=== PATIENT | male | born 1950 | race Caucasian/White ===

== ENCOUNTER 2019-04-23 23:09 | Observation (INO) ==
[2019-04-23 23:11] LABS: Microscopic, Urine URINE MICROSCOPIC (MICROSCOPIC)
--- NOTE | 2019-04-23 23:16 | Emergency Department Note ---
ED Disposition Clinical Impression: PNA (pneumonia) Qualifiers: Pneumonia type: due to unspecified organism Laterality: left Lung location: lower lobe of lung Qualified Code(s): J18.9 - Pneumonia, unspecified organism Disposition: Admitted as Observation Condition on Discharge: [facility] - Critical Care Critical Care Time: No Attestation: On 04/23/19, the high probability of a clinically significant, sudden or life threatening deterioration of the following system(s) required my full and direct attention, intervention and personal management. The time I documented below is in addition to time spent performing reported procedures but includes the following listed in this critical care notation. Medical Decision Making - Niall Inquiry Pt receiving controlled substance: No Vital Signs: 04/23/19 23:00 04/24/19 00:22 04/24/19 04:00 Temperature 100.6 F H Temperature Source Rectal Pulse Rate Pulse Rate [Right Brachial] 115 H 70 Respiratory Rate 20 19 Blood Pressure Blood Pressure [Right Arm] 132/78 114/59 L Blood Pressure Mean [Right Arm] 96 77 Blood Pressure Source Blood Pressure Source [Right Arm] Automatic Cuff Automatic Cuff Blood Pressure Position Blood Pressure Position [Right Arm] Sitting Sitting 02 Sat by Pulse Oximetry 98 Oxygen Delivery Method Room Air Nasal Cannula Oxygen Flow Rate (LPM) 2 04/24/19 04:11 04/24/19 04:45 Temperature 98.9 F 98.9 F Temperature Source Oral Axillary Pulse Rate 81 Pulse Rate [Right Brachial] 73 Respiratory Rate 19 18 Blood Pressure 121/70 Blood Pressure [Right Arm] 120/66 Blood Pressure Mean [Right Arm] 84 Blood Pressure Source Automatic Cuff Blood Pressure Source [Right Arm] Automatic Cuff Blood Pressure Position Sitting Blood Pressure Position [Right Arm] Supine 02 Sat by Pulse Oximetry 95 Oxygen Delivery Method Room Air Nasal Cannula Oxygen Flow Rate (LPM) 2 - Lab Data Lab Results 04/23/19 23:00: Urine Color Yellow, Urine Appearance Clear, Urine pH 6.0, Ur Specific Peak 1.025, Urine Protein Negative, Urine Glucose (UA) Negative, Urine Ketones Negative, Urine Blood Negative, Urine Nitrate Negative, Urine Bilirubin Negative, Urine Urobilinogen 4.0, Ur Leukocyte Esterase Negative, Urine WBC 3-5, Ur Squamous Epith Cells 5-10, Urine Bacteria Trace, Urine Mucus Trace 04/23/19 23:10: WBC 9.4, RBC 4.60, Hgb 14.3, Hct 44.7, MCV 97.3 H, MCH 31.2, MCHC 32.1, RDW 14.7, Plt Count 102 L, MPV 7.3 L, Neut % (Auto) 82.6 H, Lymph % (Auto) 7.7 L, [place] % (Auto) 7.5, Eos % (Auto) 2.0, Baso % (Auto) 0.2, Neut # (Auto) 7.8, Lymph # (Auto) 0.7, [place] # (Auto) 0.7, Eos # (Auto) 0.2, Baso # (Auto) 0.0 04/23/19 23:10: Sodium 143, Potassium 3.6, Chloride 103, Carbon Dioxide 27, Anion Gap 16.6 H, BUN 20 H, Creatinine 1.18, Estimated Creat Clear 93, Estimated GFR 61, Est GFR ( Amer) 74, Glucose 139 H, Calcium 8.8, Total Bilirubin 1.2 H, AST 34, ALT 43, Alkaline Phosphatase 66, Troponin I < 0.02, Total Protein 7.3, Albumin 3.6, Globulin 3.7 H, Albumin/Globulin Ratio 1.0 L 04/23/19 23:10: Lactate 2.4 H 04/23/19 23:10: Influenza Type A Ag Negative, Influenza Type B Ag Negative 04/23/19 23:10: B-Natriuretic Peptide 62 04/23/19 23:22: O2 % 2l, ABG pH 7.43, ABG pCO2 34.0 L, ABG pO2 65.3 L, ABG HCO3 22.0, ABG Total CO2 23.1, ABG O2 Saturation 92, ABG Base Excess -2.3 04/24/19 02:29: Troponin I < 0.02 04/24/19 03:15: Lactate 2.0 Result diagrams: 04/23/19 23:10 04/23/19 23:10 Orders (Tests/Meds): ED MEDICATIONS Generic Name Dose Route Start Last Admin Trade Name Freq PRN Reason Stop Dose Admin Hydrocodone Bitart/Acetaminophen 1 tab 04/24/19 04:08 [place] 5/325mg Tablet PO 05/24/19 03:37 DAILYP PRN pain Baclofen 10 mg 04/24/19 09:00 Lioresal 10mg Tablet PO 05/24/19 08:59 DAILY CORETTA Finasteride 5 mg 04/24/19 09:00 Proscar 5mg Tablet PO 05/24/19 08:59 DAILY [facility] Furosemide 80 mg 04/24/19 09:00 Lasix 80mg Tablet PO 05/24/19 08:59 DAILY [facility] Sodium Chloride 1,000 mls @ 999 mls/hr 04/24/19 04:08 04/24/19 02:51 Sod Chlor 0.9% 1000ml Bag IV 04/24/19 05:08 999 mls/hr .Q1H1M CORETTA Administration Azithromycin 500 mg/ Sodium 250 mls @ 250 mls/hr 04/25/19 01:30 Chloride IV 05/08/19 01:29 Q24H [facility] Protocol Ceftriaxone Sodium 1 gm/ 50 mls @ 100 mls/hr 04/25/19 01:30 Sodium Chloride IV 05/08/19 01:29 Q24H [facility] Protocol Sodium Chloride 1,000 mls @ 999 mls/hr 04/24/19 04:15 04/24/19 02:51 Sod Chlor 0.9% 1000ml Bag IV 04/24/19 06:15 999 mls/hr .Q1H1M [facility] Administration Levothyroxine Sodium 150 mcg 04/24/19 09:00 Synthroid 150mcg (0.15mg) Tablet PO 05/24/19 08:59 DAILY [facility]ET[place] Metoprolol Tartrate 25 mg 04/24/19 09:00 Lopressor 25mg Tablet PO 05/24/19 08:59 BID [facility] Non-Formulary Medication 50,000 unit 04/24/19 09:00 Cholecalciferol (Vitamin D3) [Vitamin D3 50,000 Unit Cap] PO 05/24/19 08:59 DAILY [facility] Non-Formulary Medication 1 each 04/24/19 09:00 Multivit With Iron,Minerals [Multivitamins With Iron] PO 05/24/19 08:59 DAILY [place] Non-Formulary Medication 40 mg 04/24/19 09:00 Simvastatin PO 05/24/19 08:59 DAILY [place] Non-Formulary Medication 1 each 04/24/19 04:08 Dextromethorphan Hbr/Quinidine [Nuedexta 20-10 Mg Capsule] PO DAILYP PRN x Polyethylene Glycol 17 gm 04/24/19 04:08 Miralax 17gm Packet PO 05/24/19 03:37 DAILYP PRN Constipation Potassium Chloride 10 meq 04/24/19 09:00 Klor-Con 10meq Tablet PO 05/24/19 08:59 DAILY [facility] Senna/Docusate Sodium 1 tab 04/24/19 04:08 Senokot-S Tablet PO 05/24/19 03:37 DAILYP PRN stool Senna/Docusate Sodium 1 tab 04/24/19 04:08 Senokot-S Tablet PO 05/24/19 03:37 DAILYP PRN stool Sertraline HCl 100 mg 04/24/19 09:00 Zoloft 100mg Tablet PO 05/24/19 08:59 DAILY [facility] Discontinued Medications Generic Name Dose Route Start Last Admin Trade Name Freq PRN Reason Stop Dose Admin Acetaminophen 650 mg 04/23/19 23:07 04/23/19 23:46 Acetaminophen 650mg Suppository RC 04/23/19 23:08 650 mg ONCE ONE Administration Hydrocodone Bitart/Acetaminophen 1 tab 04/24/19 03:38 [place] 5/325mg Tablet PO 05/24/19 03:37 DAILYP PRN pain Baclofen 10 mg 04/24/19 09:00 Lioresal 10mg Tablet PO 05/24/19 08:59 DAILY [facility] Finasteride 5 mg 04/24/19 09:00 Proscar 5mg Tablet PO 05/24/19 08:59 DAILY [facility] Furosemide 80 mg 04/24/19 09:00 Lasix 80mg Tablet PO 05/24/19 08:59 DAILY [facility] Sodium Chloride 1,000 mls @ 999 mls/hr 04/23/19 23:15 04/24/19 00:02 Sod Chlor 0.9% 1000ml Bag IV 04/24/19 00:15 999 mls/hr .Q1H1M [facility] Administration Azithromycin 500 mg/ Sodium 250 mls @ 250 mls/hr 04/24/19 01:30 04/24/19 01:47 Chloride IV 05/08/19 01:29 250 mls/hr Q24H [facility] Administration Protocol Ceftriaxone Sodium 1 gm/ 50 mls @ 100 mls/hr 04/24/19 01:30 04/24/19 01:47 Sodium Chloride IV 05/08/19 01:29 100 mls/hr Q24H [facility] Administration Protocol Levothyroxine Sodium 150 mcg 04/24/19 09:00 Synthroid 150mcg (0.15mg) Tablet PO 05/24/19 08:59 DAILY [facility] Metoprolol Tartrate 25 mg 04/24/19 09:00 Lopressor 25mg Tablet PO 05/24/19 08:59 BID [place] Non-Formulary Medication 50,000 unit 04/24/19 09:00 Cholecalciferol (Vitamin D3) [Vitamin D3 50,000 Unit Cap] PO 05/24/19 08:59 DAILY [place] Non-Formulary Medication 1 each 04/24/19 03:38 Dextromethorphan Hbr/Quinidine [Nuedexta 20-10 Mg Capsule] PO DAILYP PRN x Non-Formulary Medication 1 each 04/24/19 09:00 Multivit With Iron,Minerals [Multivitamins With Iron] PO 05/24/19 08:59 DAILY [place] Non-Formulary Medication 40 mg 04/24/19 09:00 Simvastatin PO 05/24/19 08:59 DAILY [place] Polyethylene Glycol 17 gm 04/24/19 03:38 Miralax 17gm Packet PO 05/24/19 03:37 DAILYP PRN Constipation Potassium Chloride 10 meq 04/24/19 09:00 Klor-Con 10meq Tablet PO 05/24/19 08:59 DAILY [facility] Senna/Docusate Sodium 1 tab 04/24/19 03:38 Senokot-S Tablet PO 05/24/19 03:37 DAILYP PRN stool Senna/Docusate Sodium 1 tab 04/24/19 03:38 Senokot-S Tablet PO 05/24/19 03:37 DAILYP PRN stool Sertraline HCl 100 mg 04/24/19 09:00 Zoloft 100mg Tablet PO 05/24/19 08:59 DAILY [place] ORDERS Category Date Time Status CT head/brain wo con Stat Cat Scan 04/24/19 00:12 Taken XR chest portable Stat Exams 04/23/19 23:04 Taken Troponin I Q3H Lab 04/24/19 05:35 Received Blood Culture Stat Micro 04/23/19 23:10 Received Medical Decision Narrative: In summary patient is a chronically ill-appearing 69-year-old male presenting to the emergency department for evaluation of nausea, vomiting, and fever. On arrival to the emergency department patient is hypoxic requiring 2 L of O2. He is febrile and tachycardic concerning for likely infection. Given this appropriate work-up initiated including CBC, CMP, lactate, BNP, troponin panel, chest x-ray, and urinalysis. EKG returned showing normal sinus rhythm, no ST elevation, depression, or QT prolongation noted. Patient's x-ray returns and this is concerning for potential fluid congestion, as well as left-sided pneumonia. Given this patient started on ceftriaxone, and azithromycin. Rest of patient's labs significant for lactate of 2.4, anion gap of 16.6, BNP was not elevated, and initial troponin showed no elevation. Decreasing concern for ACS, or CHF exacerbation. Will await repeat troponin. Patient CT head returns noting encephalomalacia, but no acute intracranial findings. Repeat troponin shows no significant delta. Given this I believe patient symptoms likely secondary to new onset pneumonia. As patient does not have a primary care physician in the [facility] system, Dr. Acosta consulted and has agreed to admit the patient. General Adult HPI - General Chief complaint: Fever Stated complaint: altered mental status Time Seen by Provider: 04/23/19 23:15 Mode of Arrival: EMS Limitations: No Limitations Description of Symptoms (Recalled from ER Triage Doc. by RN): pt presents with increased lethargy per ut staff report, increased temperature, and decr oxygen saturation - History of Present Illness HPI narrative: Patient is a 69-year-old male senior care patient, with a past medical history of chronic A. fib, previous cerebral artery infarct, previous intracranial hemorrhage, dementia, and heart failure, who presents to the emergency department for evaluation of fever and vomiting. Per report patient has had 2 to 3 days of remittent vomiting, and then developed a fever. On arrival to the emergency department history could not be obtained from the patient due to his mental status. Per EMS he is at his mental baseline. On arrival to the emergency department patient noted to be hypoxic requiring 2 L nasal cannula. EMS patient does not normally require O2. - Related Data Home Medications Medication Instructions Recorded Confirmed Aspirin [Aspirin 325mg Tab] 325 mg PO DAILY 04/24/19 04/24/19 Baclofen [Lioresal 10mg tablet] 10 mg PO DAILY 04/24/19 04/24/19 Cholecalciferol (Vitamin D3) 50,000 unit PO DAILY 04/24/19 04/24/19 [Vitamin D3 50,000 unit Cap] Dextromethorphan HBr/Quinidine 1 each PO DAILYP PRN 04/24/19 04/24/19 [Nuedexta 20-10 mg Capsule] Finasteride [Proscar 5mg Tablet] 5 mg PO DAILY 04/24/19 04/24/19 Furosemide [Furosemide 80mg Tab] 80 mg PO DAILY 04/24/19 04/24/19 Hydrocodone/Acetaminophen 1 each PO DAILYP PRN 04/24/19 04/24/19 [Hydrocodone-Acetamin 5-325 mg] Levothyroxine Sodium 150 mcg PO DAILY 04/24/19 04/24/19 [Levothyroxine 150mcg (0.15mg) Tab] Levothyroxine Sodium 150 mcg PO DAILY 04/24/19 04/24/19 [Levothyroxine 150mcg (0.15mg) Tab] Loratadine [Allergy Relief] 10 mg PO DAILY 04/24/19 04/24/19 Loratadine [Claritin] 10 mg PO DAILY 04/24/19 04/24/19 Metoprolol Tartrate [Lopressor 25 mg PO BID 04/24/19 04/24/19 25mg tablet] Multivit with Iron,Minerals 1 each PO DAILY 04/24/19 04/24/19 [Multivitamins with Iron] Polyethylene Glycol 3350 [Miralax 17 gm PO DAILYP PRN 04/24/19 04/24/19 17gm Packet] Potassium Chloride 10 meq PO DAILY 04/24/19 04/24/19 Sennosides/Docusate Sodium 1 each PO DAILYP PRN 04/24/19 04/24/19 [Docusate Sodium-Senna Tablet] Sennosides/Docusate Sodium [Senna 1 each PO DAILYP PRN 04/24/19 04/24/19 Plus 8.6-50 mg Tablet] Sertraline HCl [Zoloft 100mg 100 mg PO DAILY 04/24/19 04/24/19 tablet] Simvastatin 40 mg PO DAILY 04/24/19 04/24/19 raNITIdine HCl [Ranitidine HCl] 150 mg PO DAILY 04/24/19 04/24/19 Allergies Allergy/AdvReac Type Severity Reaction Status Date / Time FISH OIL Allergy Unknown Uncoded 04/09/17 15:24 [facility] History - Hepatitis A Screen Drug use history?: No High risk sexual behaviors?: No History of sexually transmitted infection?: No Currently employed?: No Childcare worker?: No Do you have indoor plumbing?: Yes Do you have electricity?: Yes Attestation statement:: This patient has been screened for Hepatitis A risk factors. I have reviewed the patient's past medical history: Yes Medical History: Reports:: Atrial Fibrillation, Coronary Artery Disease, Cerebrovascular Accident, Dementia, Depression Other Medical History: Reports: Anemia Comment: subarachnoid hemorrhage Other Surgeries: Yes: Other (Unknown) - Social History Smoking Status: Never smoker Alcohol Intake: never Occupational Status: disabled Housing: senior care ROS Obtained: Yes unobtainable due to mental condition Physical Exam - General General appearance: alert, in no apparent distress - Head Head exam: atraumatic - ENT ENT exam: Present: normal exam - Chest Chest inspection: Present: normal inspection, symmetric chest wall rise - Respiratory Respiratory exam: Present: other (Coarse breath sounds with crackles) - Cardiovascular Cardiovascular exam: Present: normal rhythm, tachycardia. Absent: regular rate - Neurological Exam Neurological exam: Present: other (Nonverbal)
[2019-04-23 23:17] LABS: Appearance,Urine CLEAR (Clear); Bilirubin,Urine Negative (Negative); Blood, Urine Negative (Negative); Color,Urine YELLOW (Yellow); Glucose,Urine (UA) Negative (Negative); Ketones,Urine Negative (Negative); Leukocyte Esterase,Urine Negative (Negative); Protein,Urine Negative (Negative); Specific Gravity, Urine 1.025 (1.005-1.030)
[2019-04-23 23:24] LABS: ABG Base Excess -2.3 mmol/L (-2.4-2.3); ABG Oxygen Saturation 92 % (90-100); ABG PH 7.43 mmol/L (7.35-7.45); ABG PO2 65.3 mmhg (80-100); ABG TCO2 23.1 mmhg (23-27)
[2019-04-23 23:26] LABS: Basophils % 0.2 % (0.1-2.0); Eosinophils # 0.2 K/mm3 (0.0-0.4); Hematocrit 44.7 % (42.0-52.0); Hemoglobin 14.3 g/dL (14.1-18.0); Lymphocytes # 0.7 K/mm3 (0.7-4.5); Lymphocytes % 7.7 % (10-50); Mean Corpuscular HGB Conc 32.1 g/dL (31.8-35.4); Mean Corpuscular Volume 97.3 fl (80-94); Mean Platelet Volume 7.3 fl (7.4-10.4); Monocytes # 0.7 K/mm3 (0.1-1.0); Monocytes % 7.5 % (1.7-9.3); Neutrophils # 7.8 K/mm3 (1.8-7.8); Neutrophils % 82.6 % (37.0-80.0); Platelet Count 102 K/mm3 (142-424); Red Cell Distribution Width 14.7 % (11.5-17.5); White Blood Count 9.4 K/mm3 (4.8-10.8)
[2019-04-23 23:26] LABS: Oxygen 2L %
[2019-04-23 23:26] LABS: Bacteria,Urine Trace /lpf; Mucus,Urine Trace /lpf
[2019-04-23 23:47] LABS: Alanine Aminotransferase 43 U/L (12-78); Albumin Level 3.6 gm/dL (3.4-5.0); Alkaline Phosphatase 66 U/L (46-116); Anion Gap 16.6 mEq/L (5-15); Aspartate Amino Transferase 34 U/L (15-37); Bilirubin,Total 1.2 mg/dL (0.2-1.0); Blood Urea Nitrogen 20 mg/dL (7-18); Calcium 8.8 mg/dL (8.5-10.1); Carbon Dioxide 27 mmol/L (21.0-32.0); Chloride 103 mmol/L (98-107); Globulin 3.7 gm/dl (1.3-3.2); Glucose 139 mg/dL (74-106); Sodium 143 mmol/L (136-145); Total Protein,Serum 7.3 gm/dL (6.4-8.2)
--- NOTE | 2019-04-24 07:35 | Pharmacy Consult Notes ---
[facility] Pharmacy VTE Monitoring - Patient Demographics Admission date: 04/23/19 Report Date: 04/24/19 Time: 07:35 Allergies/Adverse Reactions: Patient Allergies FISH OIL Allergy (Unknown, Uncoded 04/09/17 15:24) Height: 1.78 m Weight: 127.091 kg Patient Problems: Current Active Problems PNA (pneumonia) (Acute) - VTE Risk Labs: VTE Related Lab Results Hgb 14.3 g/dL (14.1-18.0) 04/23/19 23:10 Hct 44.7 % (42.0-52.0) 04/23/19 23:10 Plt Count 102 K/mm3 (142-424) L 04/23/19 23:10 BUN 20 mg/dL (7-18) H 04/23/19 23:10 Creatinine 1.18 mg/dL (0.70-1.30) 04/23/19 23:10 Estimated Creat Clear 93 mL/min (50-200) 04/23/19 23:10 Was VTE Risk Assessment Performed: Yes VTE Score: 4 VTE Risk Level: Low Risk Clinical Trial Participant: No - Prophylaxis VTE Prophylaxis Ordered?: Yes Types of VTE Prophylaxis: TEDS Knee High
--- NOTE | 2019-04-24 08:07 | Electrocardiograph Report ---
APPROVED REPORT Exam: Resting ECG HR:102 bpm ECG Measurements Heart Rate 102 AXES MN 184 P 48 QRSd 86 QRS 10 QT 350 T-10 QTc 456 <Conclusion> Sinus tachycardia ST & T wave abnormality, consider anterolateral ischemia Abnormal ECG Electronically signed by : Grady Santiago, 04/24/2019 08:07:20
--- NOTE | 2019-04-24 08:47 | H&P/Discharge Summary ---
General - General Admission date:: 04/24/19 Discharge date: 04/24/19 *Admission Date: 04/23/19 *Chief complaint: fever *History of present illness: Mr. 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 Has subsequent left-sided hemiparesis and minimal interaction. He has been a longtime resident of [facility]. He presented to the ER due to an episode of emesis and fever. Concern for some respiratory symptoms at that time. On presentation was found to have a fever, white count, and concern for pneumonia. He was started on broad-spectrum antibiotics and initiated for oxygen therapy and further treatment. Elma at bedside today giving history as we are unable to obtain any history or review of systems from the patient himself. Family reports he is more or less at his baseline right now. He does eat with assistance. Has been having some coughing that is more prominent over the past several months with eating. He otherwise is bedbound and fully dependent on care for ADLs. Appears comfortable this morning to family [facility] History I have reviewed the patient's past medical history: Yes (from family and chart) Medical History: Reports:: Atrial Fibrillation, Coronary Artery Disease, Cerebrovascular Accident, Dementia, Depression Denies:: Cancer, Diabetes Mellitus Type 1, Diabetes Mellitus Type 2, MRSA *Have you ever received a pneumonia vaccine?: Yes *Have you received a flu vaccine this season?: Yes Other Medical History: Reports: Anemia Other Surgeries: Yes: Other (Brain Surgery) Amputation: No Fractures: Yes (Skull) - *Social History Smoking Status: Never smoker Alcohol Intake: never *Occupational Status:: disabled Housing: retirement *Travel in the last 8 weeks: None - Psychiatric History Pschychiatric History:: Reports:: Depression Family Hx:: Heart Attack, Hyperlipidemia, Hypertension Review of Systems - Review of Systems Review of systems:: unable to obtain (Non verbal patient) Exam Vital signs and Labs for Last 24 Hours: Temp Pulse Resp BP Pulse Ox 98.9 F 73 18 109/66 L 95 04/24/19 08:00 04/24/19 08:00 04/24/19 08:00 04/24/19 08:00 04/24/19 08:00 Laboratory Results - last 24 hr 04/23/19 23:00: Urine Color Yellow, Urine Appearance Clear, Urine pH 6.0, Ur Specific [place] 1.025, Urine Protein Negative, Urine Glucose (UA) Negative, Urine Ketones Negative, Urine Blood Negative, Urine Nitrate Negative, Urine Bilirubin Negative, Urine Urobilinogen 4.0, Ur Leukocyte Esterase Negative, Urine WBC 3-5, Ur Squamous Epith Cells 5-10, Urine Bacteria Trace, Urine Mucus Trace 04/23/19 23:10: WBC 9.4, RBC 4.60, Hgb 14.3, Hct 44.7, MCV 97.3 H, MCH 31.2, MCHC 32.1, RDW 14.7, Plt Count 102 L, MPV 7.3 L, Neut % (Auto) 82.6 H, Lymph % (Auto) 7.7 L, Harvey % (Auto) 7.5, Eos % (Auto) 2.0, Baso % (Auto) 0.2, Neut # (Auto) 7.8, Lymph # (Auto) 0.7, Harvey # (Auto) 0.7, Eos # (Auto) 0.2, Baso # (Auto) 0.0 04/23/19 23:10: Sodium 143, Potassium 3.6, Chloride 103, Carbon Dioxide 27, Anion Gap 16.6 H, BUN 20 H, Creatinine 1.18, Estimated Creat Clear 93, Estimated GFR 61, Est GFR ( Amer) 74, Glucose 139 H, Calcium 8.8, Total Bilirubin 1.2 H, AST 34, ALT 43, Alkaline Phosphatase 66, Troponin I < 0.02, Total Protein 7.3, Albumin 3.6, Globulin 3.7 H, Albumin/Globulin Ratio 1.0 L 04/23/19 23:10: Lactate 2.4 H 04/23/19 23:10: Influenza Type A Ag Negative, Influenza Type B Ag Negative 04/23/19 23:10: B-Natriuretic Peptide 62 04/23/19 23:22: O2 % 2l, ABG pH 7.43, ABG pCO2 34.0 L, ABG pO2 65.3 L, ABG HCO3 22.0, ABG Total CO2 23.1, ABG O2 Saturation 92, ABG Base Excess -2.3 04/24/19 02:29: Troponin I < 0.02 04/24/19 03:15: Lactate 2.0 04/24/19 05:35: Troponin I < 0.02 I & O for Last 24 hours: Intake & Output 04/21/19 04/22/19 04/23/19 04/24/19 23:59 23:59 23:59 23:59 Intake Total 3860 / 3860 Output Total 475 / 475 Balance 3385 / 3385 Weight 111.13 kg 127.091 kg - Constitutional no acute distress, morbidly obese, somnolent - *Routine HEENT Exam Head: Present: normocephalic Eye: Present: EOMI, PERRL ENT: Present: mucous membranes moist - *Routine Neck Exam Present: supple. Absent: lymphadenopathy - *Routine Respiratory Exam Present: CTA bilaterally - *Routine Cardiovascular Exam Present: RRR - *Routine Abdominal Exam Present: soft, normoactive bowel sounds. Absent: tenderness - *Routine Extremities Exam Absent: cyanosis, clubbing, edema Comments: flaccid LUE - *Routine Skin Exam Present: warm. Absent: rash - *Routine Neurological Exam Opens eyes spontaneously, no meaningful interaction. No movement of left side. Nonverbal. Has 4-5 strength right upper extremity. Lower extremities not assessed Hospital Course Hospital Course: admitted overnight to medicine. Speech saw patient this morning and gave further recommendations on adjustments to his diet for modification. Did meet criteria for oxygen need with room air saturation 94%. Otherwise review of chest x-ray this morning shows no focal consolidation however I had some concern for cephalization of vasculature. Patient was given a dose of diuretic to help decrease any volume overload, in the setting of 1+ edema in bilateral ankles. Additionally, given left shift and fever, will continue oral antibiotics for 7 days total. Plan to discharge back to [facility] to complete antibiotics, continue oxygen as needed, continue with new dietary modifications, and further management. Had discussion with family at bedside that patient is at risk for aspiration and as long as they understand that there is risk for aspiration infection, it is not imprudent to continue to feed him orally for quality of life and comfort measures. Family chooses to do this at this time. Of note, had Douglas placed on admission. Has had some blood-tinged urine throughout the day. No vielka clots appreciated. Plan to leave in place until Saturday, please pull on Saturday as long as Urine clearing. Results Labs on day of discharge: Labs from last 24 hours 04/24/19 04/24/19 04/24/19 05:35 03:15 02:29 WBC RBC Hgb Hct MCV MCH MCHC RDW Plt Count MPV Neut % (Auto) Lymph % (Auto) Harvey % (Auto) Eos % (Auto) Baso % (Auto) Neut # (Auto) Lymph # (Auto) Harvey # (Auto) Eos # (Auto) Baso # (Auto) O2 % ABG pH ABG pCO2 ABG pO2 ABG HCO3 ABG Total CO2 ABG O2 Saturation ABG Base Excess Sodium Potassium Chloride Carbon Dioxide Anion Gap BUN Creatinine Estimated Creat Clear Estimated GFR Est GFR ( Amer) Glucose Lactate 2.0 Calcium Total Bilirubin AST ALT Alkaline Phosphatase Troponin I < 0.02 < 0.02 B-Natriuretic Peptide Total Protein Albumin Globulin Albumin/Globulin Ratio Urine Color Urine Appearance Urine pH Ur Specific [place] Urine Protein Urine Glucose (UA) Urine Ketones Urine Blood Urine Nitrate Urine Bilirubin Urine Urobilinogen Ur Leukocyte Esterase Urine WBC Ur Squamous Epith Cells Urine Bacteria Urine Mucus Influenza Type A Ag Influenza Type B Ag 04/23/19 04/23/19 04/23/19 23:22 23:10 23:10 WBC RBC Hgb Hct MCV MCH MCHC RDW Plt Count MPV Neut % (Auto) Lymph % (Auto) Harvey % (Auto) Eos % (Auto) Baso % (Auto) Neut # (Auto) Lymph # (Auto) Harvey # (Auto) Eos # (Auto) Baso # (Auto) O2 % 2l ABG pH 7.43 ABG pCO2 34.0 L ABG pO2 65.3 L ABG HCO3 22.0 ABG Total CO2 23.1 ABG O2 Saturation 92 ABG Base Excess -2.3 Sodium Potassium Chloride Carbon Dioxide Anion Gap BUN Creatinine Estimated Creat Clear Estimated GFR Est GFR ( Amer) Glucose Lactate Calcium Total Bilirubin AST ALT Alkaline Phosphatase Troponin I B-Natriuretic Peptide 62 Total Protein Albumin Globulin Albumin/Globulin Ratio Urine Color Urine Appearance Urine pH Ur Specific [place] Urine Protein Urine Glucose (UA) Urine Ketones Urine Blood Urine Nitrate Urine Bilirubin Urine Urobilinogen Ur Leukocyte Esterase Urine WBC Ur Squamous Epith Cells Urine Bacteria Urine Mucus Influenza Type A Ag Negative Influenza Type B Ag Negative 04/23/19 04/23/19 04/23/19 23:10 23:10 23:10 WBC 9.4 RBC 4.60 Hgb 14.3 Hct 44.7 MCV 97.3 H MCH 31.2 MCHC 32.1 RDW 14.7 Plt Count 102 L MPV 7.3 L Neut % (Auto) 82.6 H Lymph % (Auto) 7.7 L Harvey % (Auto) 7.5 Eos % (Auto) 2.0 Baso % (Auto) 0.2 Neut # (Auto) 7.8 Lymph # (Auto) 0.7 Harvey # (Auto) 0.7 Eos # (Auto) 0.2 Baso # (Auto) 0.0 O2 % ABG pH ABG pCO2 ABG pO2 ABG HCO3 ABG Total CO2 ABG O2 Saturation ABG Base Excess Sodium 143 Potassium 3.6 Chloride 103 Carbon Dioxide 27 Anion Gap 16.6 H BUN 20 H Creatinine 1.18 Estimated Creat Clear 93 Estimated GFR 61 Est GFR ( Amer) 74 Glucose 139 H Lactate 2.4 H Calcium 8.8 Total Bilirubin 1.2 H AST 34 ALT 43 Alkaline Phosphatase 66 Troponin I < 0.02 B-Natriuretic Peptide Total Protein 7.3 Albumin 3.6 Globulin 3.7 H Albumin/Globulin Ratio 1.0 L Urine Color Urine Appearance Urine pH Ur Specific [place] Urine Protein Urine Glucose (UA) Urine Ketones Urine Blood Urine Nitrate Urine Bilirubin Urine Urobilinogen Ur Leukocyte Esterase Urine WBC Ur Squamous Epith Cells Urine Bacteria Urine Mucus Influenza Type A Ag Influenza Type B Ag 04/23/19 23:00 WBC RBC Hgb Hct MCV MCH MCHC RDW Plt Count MPV Neut % (Auto) Lymph % (Auto) Harvey % (Auto) Eos % (Auto) Baso % (Auto) Neut # (Auto) Lymph # (Auto) Harvey # (Auto) Eos # (Auto) Baso # (Auto) O2 % ABG pH ABG pCO2 ABG pO2 ABG HCO3 ABG Total CO2 ABG O2 Saturation ABG Base Excess Sodium Potassium Chloride Carbon Dioxide Anion Gap BUN Creatinine Estimated Creat Clear Estimated GFR Est GFR ( Amer) Glucose Lactate Calcium Total Bilirubin AST ALT Alkaline Phosphatase Troponin I B-Natriuretic Peptide Total Protein Albumin Globulin Albumin/Globulin Ratio Urine Color Yellow Urine Appearance Clear Urine pH 6.0 Ur Specific [place] 1.025 Urine Protein Negative Urine Glucose (UA) Negative Urine Ketones Negative Urine Blood Negative Urine Nitrate Negative Urine Bilirubin Negative Urine Urobilinogen 4.0 Ur Leukocyte Esterase Negative Urine WBC 3-5 Ur Squamous Epith Cells 5-10 Urine Bacteria Trace Urine Mucus Trace Influenza Type A Ag Influenza Type B Ag DS: Diagnosis - Discharge Diagnosis (1) Fever Status: Acute (2) Leukocytosis Status: Acute (3) Hypoxemia Status: Acute (4) Pneumonia Status: Acute Discharge Plan - Patient Discharge Instructions ACTIVITY: Bed rest DIET: other (See dietary recommendations, recommend thin liquids with dysphagia mechanical soft ground meats.) Patient Instructions: Pneumonia-Adult, Small Bowel Obstruction, Pneumococcal Vaccine, DI for Pneumonia -- Adult, DI for Small Bowel Obstruction - Follow up Plan Disposition: [facility] Home Medications: Home Medications Medication Instructions Recorded Confirmed Type Acetaminophen [Acetaminophen Extra 1,000 mg PO Q6HP PRN 04/24/19 04/24/19 History Strength] Aspirin [Aspirin 325mg Tab] 325 mg PO DAILY 04/24/19 04/24/19 History Azithromycin 250 mg PO DAILY 4 Days #4 tab 04/24/19 Rx Baclofen [Lioresal 10mg tablet] 10 mg PO BID 04/24/19 04/24/19 History Bisacodyl [Bisacodyl 10mg Supp] 10 mg RC DAILYP PRN 04/24/19 04/24/19 History Cefdinir [Omnicef 300mg Capsule] 300 mg PO BID 6 Days #12 cap 04/24/19 Rx Cholecalciferol (Vitamin D3) 50,000 unit PO WEEKLY 04/24/19 04/24/19 History [Vitamin D3 50,000 unit Cap] Dextromethorphan HBr/Quinidine 1 each PO BID 04/24/19 04/24/19 History [Nuedexta 20-10 mg Capsule] Dextromethorphan HBr/Quinidine 1 each PO BID 04/24/19 04/24/19 History [Nuedexta 20-10 mg Capsule] Divalproex Sodium [Depakote 500 mg PO TID 04/24/19 04/24/19 History Sprinkle 125mg capsule] Docusate Sodium 250 mg PO BID 04/24/19 04/24/19 History Finasteride [Proscar 5mg Tablet] 5 mg PO HS 04/24/19 04/24/19 History Furosemide [Furosemide 80mg Tab] 80 mg PO DAILY 04/24/19 04/24/19 History Hydrocodone/Acetaminophen 1 each PO BID 04/24/19 04/24/19 History [Hydrocodone-Acetamin 5-325 mg] Ibuprofen [Motrin Ib 200mg] 600 mg PO Q4HP PRN 04/24/19 04/24/19 History Lactulose [Lactulose 10gm/15ml 30 ml PO DAILYP PRN 04/24/19 04/24/19 History Oral Soln] Levothyroxine Sodium 150 mcg PO DAILY 04/24/19 04/24/19 History [Levothyroxine 150mcg (0.15mg) Tab] Loratadine [Claritin] 10 mg PO DAILY 04/24/19 04/24/19 History Metoprolol Tartrate [Lopressor 25 mg PO BID 04/24/19 04/24/19 History 25mg tablet] Multivit with Iron,Minerals 1 each PO HS 04/24/19 04/24/19 History [Multivitamins with Iron] Nitroglycerin 0.4 mg SL Q5MINP PRN 04/24/19 04/24/19 History Polyethylene Glycol 3350 [Miralax 17 gm PO DAILY 04/24/19 04/24/19 History 17gm Packet] Potassium Chloride 20 meq PO BID 04/24/19 04/24/19 History Sennosides/Docusate Sodium 1 each PO BID 04/24/19 04/24/19 History [Docusate Sodium-Senna Tablet] Sennosides/Docusate Sodium [Senna 2 each PO HS 04/24/19 04/24/19 History Plus 8.6-50 mg Tablet] Sertraline HCl [Zoloft 100mg 100 mg PO DAILY 04/24/19 04/24/19 History tablet] Simvastatin 40 mg PO HS 04/24/19 04/24/19 History Tolterodine Tartrate 2 mg PO BID 04/24/19 04/24/19 History raNITIdine HCl [Ranitidine HCl] 150 mg PO BID 04/24/19 04/24/19 History Prescriptions/Medication Reconciliation: New Azithromycin 250 mg PO DAILY 4 Days #4 tab Cefdinir [Omnicef 300mg Capsule] 300 mg PO BID 6 Days #12 cap Continued Simvastatin 40 mg PO HS Sertraline HCl [Zoloft 100mg tablet] 100 mg PO DAILY raNITIdine HCl [Ranitidine HCl] 150 mg PO BID Potassium Chloride 20 meq PO BID Finasteride [Proscar 5mg Tablet] 5 mg PO HS Baclofen [Lioresal 10mg tablet] 10 mg PO BID Divalproex Sodium [Depakote Sprinkle 125mg capsule] 500 mg PO TID Nitroglycerin 0.4 mg SL Q5MINP PRN PRN Reason: Chest Pain Docusate Sodium 250 mg PO BID Dextromethorphan HBr/Quinidine [Nuedexta 20-10 mg Capsule] 1 each PO BID Metoprolol Tartrate [Lopressor 25mg tablet] 25 mg PO BID Levothyroxine Sodium [Levothyroxine 150mcg (0.15mg) Tab] 150 mcg PO DAILY Aspirin [Aspirin 325mg Tab] 325 mg PO DAILY Sennosides/Docusate Sodium [Senna Plus 8.6-50 mg Tablet] 2 each PO HS Sennosides/Docusate Sodium [Docusate Sodium-Senna Tablet] 1 each PO BID Polyethylene Glycol 3350 [Miralax 17gm Packet] 17 gm PO DAILY Multivit with Iron,Minerals [Multivitamins with Iron] 1 each PO HS Loratadine [Claritin] 10 mg PO DAILY Hydrocodone/Acetaminophen [Hydrocodone-Acetamin 5-325 mg] 1 each PO BID Cholecalciferol (Vitamin D3) [Vitamin D3 50,000 unit Cap] 50,000 unit PO WEEKLY Ibuprofen [Motrin Ib 200mg] 600 mg PO Q4HP PRN PRN Reason: FEVER/PAIN Lactulose [Lactulose 10gm/15ml Oral Soln] 30 ml PO DAILYP PRN PRN Reason: Constipation Bisacodyl [Bisacodyl 10mg Supp] 10 mg RC DAILYP PRN PRN Reason: Constipation Acetaminophen [Acetaminophen Extra Strength] 1,000 mg PO Q6HP PRN PRN Reason: pain/fever Tolterodine Tartrate 2 mg PO BID Dextromethorphan HBr/Quinidine [Nuedexta 20-10 mg Capsule] 1 each PO BID Held Furosemide [Furosemide 80mg Tab] 80 mg PO DAILY - Problem Reconciliation Problems Reviewed?: Yes
== END 2019-04-24 19:53 ==
LOC: ER 23:09 → 2ND 23:09
PROVIDERS: ADMIT Internal Medicine Adolescent Medicine; ATTEND Internal Medicine Adolescent Medicine
CPT/HCPCS: 36415; 70450; 71010; 71045; 80053; 81001; 82803; 83605; 83880; 84484; 85025; 87040; 87275; 87276; 92610; 93005; 96365; 96366; 96367; 96375; 99284; G0378; J0456

== ENCOUNTER → 2019-06-01 11:21 | Outpatient (POV) | payer MEDICARE, MEDICAID, SELFPAY | PROVIDERS: Visit Provider Nurse Practitioner Family | DX: Z00.00 Encounter for general adult medical examination without abnormal findings (principal) ==

== ENCOUNTER → 2020-02-03 15:06 | Outpatient (CLI) | payer MEDICARE, MEDICAID, SELFPAY ==
[2020-02-03 15:09] LABS: Adenovirus,PCR Not Detected (NotDetected); Bordetella Pertussis Not Detected (NotDetected); Chlamydophila Pneumoniae, PCR Not Detected (NotDetected); Coronavirus 19, PCR Not Detected (NotDetected); Coronavirus 229E Not Detected (NotDetected); Coronavirus NL63 Not Detected (NotDetected); Coronavirus OC43 Not Detected (NotDetected); Coronovirus HKU1,PCR Not Detected (NotDetected); Human Metapneumovirus Not Detected (NotDetected); Influenza A, PCR Not Detected (NotDetected); Influenza AH1, 2009 Not Detected (NotDetected); Influenza AH1, PCR Not Detected (NotDetected); Influenza AH3,PCR Not Detected (NotDetected); Influenza B, PCR Not Detected (NotDetected); Mycoplasma Pneumoniae, PCR Not Detected (NotDetected); Parainfluenza 1, PCR Not Detected (NotDetected); Parainfluenza 2, PCR Not Detected (NotDetected); Parainfluenza 3, PCR Not Detected (NotDetected); Parainfluenza 4, PCR Not Detected (NotDetected); Respiratory Syncytial Virus Not Detected (NotDetected); Rhinovirus/Enterovirus Not Detected (NotDetected)
== END ==
PROVIDERS: Visit Provider Family Medicine
DX: Z03.818 Encounter for observation for suspected exposure to other biological agents ruled out (principal); R06.02 Shortness of breath; R50.9 Fever, unspecified; B34.1 Enterovirus infection, unspecified
CPT/HCPCS: 87581; 87633; 87798; U0003

== ENCOUNTER → 2020-03-19 11:55 | Outpatient (CLI) | payer MEDICARE, MEDICAID, SELFPAY | PROVIDERS: Visit Provider Family Medicine | DX: Z20.828 Contact with and (suspected) exposure to other viral communicable diseases (principal); U07.1 COVID-19 | CPT/HCPCS: U0003 ==